=== PATIENT | male | born 1995 | race Caucasian/White ===

== ENCOUNTER 2017-09-18 11:58 | Emergency (ER) | payer OTHER ==
[2017-09-18] MEDS: IBUPROFEN 600 MG TAB PO (12:59)
[2017-09-18 13:13] LABS: ADD UMIC NO; UR ASCORBIC ACID 20 mg/dL (NEGATIVE); UR BILIRUBIN (Dip) NEGATIVE (NEGATIVE); UR BLOOD (Dip) NEGATIVE (NEGATIVE); UR CLARITY CLEAR (CLEAR); UR COLOR YELLOW (YELLOW); UR GLUCOSE (Dip) NEGATIVE (NEGATIVE); UR KETONES (Dip) NEGATIVE (NEGATIVE); UR LEUKOCYTE ESTERASE (Dip) NEGATIVE Leu/ul (NEGATIVE); UR NITRITE (Dip) NEGATIVE (NEGATIVE); UR SPECIFIC GRAVITY (Dip) 1.015 (1.003-1.030); UR TOTAL PROTEIN (Dip) NEGATIVE (NEGATIVE); UR UROBILINOGEN (Dip) NEGATIVE (NEGATIVE)
== END 2017-09-18 13:52 | disposition home or self-care (01) ==
LOC: FTE 11:58
DX: M54.5 Low back pain (principal); J45.909 Unspecified asthma, uncomplicated; F17.210 Nicotine dependence, cigarettes, uncomplicated
CPT/HCPCS: 72072; 72100; 81003; 99284-25

== ENCOUNTER 2017-09-21 23:12 | Emergency (ER) | payer OTHER | END 2017-09-22 01:36 | disposition home or self-care (01) | LOC: FTE 23:12 | DX: S39.92XA Unspecified injury of lower back, initial encounter (principal); J45.909 Unspecified asthma, uncomplicated; F17.210 Nicotine dependence, cigarettes, uncomplicated; W18.39XA Other fall on same level, initial encounter; Y92.89 Other specified places as the place of occurrence of the external cause | CPT/HCPCS: 99283; Z7502 ==

== ENCOUNTER 2017-10-04 17:48 | Emergency (ER) | payer OTHER ==
[2017-10-04] MEDS: ONDANSETRON (ODT) 4 MG TAB ODT (19:26)
== END 2017-10-04 19:31 | disposition home or self-care (01) ==
LOC: FTE 17:48
DX: R11.0 Nausea (principal); J45.909 Unspecified asthma, uncomplicated; F17.210 Nicotine dependence, cigarettes, uncomplicated
CPT/HCPCS: 99283; Z7502

== ENCOUNTER 2018-01-18 00:02 | Emergency (ER) | payer SELFPAY, OTHER ==
[2018-01-18] MEDS: ONDANSETRON (ODT) 4 MG TAB ODT (00:44)
== END 2018-01-18 03:24 | disposition home or self-care (01) ==
LOC: E/R 00:02
DX: R42 Dizziness and giddiness (principal); J45.909 Unspecified asthma, uncomplicated; F17.210 Nicotine dependence, cigarettes, uncomplicated; R11.0 Nausea; F07.81 Postconcussional syndrome
CPT/HCPCS: 70450; 99284-25